=== PATIENT | male | born 1960 | race Caucasian/White ===

== ENCOUNTER → 2017-02-27 | Outpatient (CLI) | payer BC ==
[2015-12-21 09:15] VITALS: BP 146/86
[~2017-02-27] MED LIST: COQ-10100 MG PO; HCTZ 25MG25 MG PO; LIPITOR20 M1 PO; QUINAPRIL HCL20 MG PO
== END ==
LOC: RAD 11:37
DX: M79.642 Pain in left hand (principal); M25.512 Pain in left shoulder; M19.042 Primary osteoarthritis, left hand

== ENCOUNTER → 2018-03-08 | Outpatient (REF) | payer BC ==
[2015-12-21 09:15] VITALS: BP 146/86
== END ==
LOC: LAB 11:14 → EDSTATUS 11:17
DX: Z00.00 Encounter for general adult medical examination without abnormal findings (principal); Z12.5 Encounter for screening for malignant neoplasm of prostate; Z12.11 Encounter for screening for malignant neoplasm of colon

== ENCOUNTER → 2021-01-31 | Outpatient (CLI) | payer BC ==
[2015-12-21 09:15] VITALS: BP 146/86
[2021-01-31 09:59] LABS: BASO # 0.1 (0.02-0.10); EOS # 0.1 (0.04-0.40); EOS % 2.4 % (0.0-4.0); HEMOGLOBIN 13.7 g/dL (13.5-18.0); LYMPH# 1.9 (1.50-4.00); MEAN CELL VOLUME 89 fl (78-100); MEAN CORPUSCULAR HEMOGLOBIN 30 pg (27-31); MEAN CORPUSCULAR HGB CONC 33 g/dL (33-37); MEAN PLATELET VOLUME 9.9 fl (7.4-10.4); MONO # 0.7 (0.20-0.80); PLATELET COUNT 246 K/mm3 (130-400); RED BLOOD COUNT 4.61 M/mm3 (4.20-5.60); RED CELL DISTRIBUTION WIDTH 12.9 % (11.5-14.5); WHITE BLOOD COUNT 5.7 K/mm3 (4.8-10.8)
[2021-01-31 10:06] LABS: ALBUMIN 4.2 g/dL (3.5-5.0); POTASSIUM 3.8 mmol/L (3.5-5.1)
[2021-01-31 10:07] LABS: CALCIUM 8.7 mg/dL (8.3-10.5)
[2021-01-31 10:08] LABS: TOTAL PROTEIN 6.9 g/dL (6.4-8.3)
[2021-01-31 10:10] LABS: TOTAL BILIRUBIN 0.9 mg/dL (0.2-1.2)
[2021-01-31 11:02] LABS: ERYTHROCYTE SEDIMENTATION RATE 5 mm/hr (0-20)
== END ==
LOC: LAB 09:31
PROVIDERS: Internal Medicine
DX: Z00.00 Encounter for general adult medical examination without abnormal findings (principal); Z12.5 Encounter for screening for malignant neoplasm of prostate; Z12.11 Encounter for screening for malignant neoplasm of colon

== ENCOUNTER → 2022-02-07 | Outpatient (CLI) | payer BC ==
[2022-02-07 11:59] LABS: BASO # 0.09 K/mm3 (0.02-0.10); EOS # 0.14 K/mm3 (0.04-0.40); EOS % 2.2 % (0.0-4.0); HEMATOCRIT 40.1 % (42.0-52.0); HEMOGLOBIN 13.5 g/dL (13.5-18.0); LYMPH# 2.34 K/mm3 (1.50-4.00); MEAN CELL VOLUME 89 fl (78-100); MEAN CORPUSCULAR HEMOGLOBIN 30 pg (27-31); MEAN CORPUSCULAR HGB CONC 34 g/dL (33-37); MEAN PLATELET VOLUME 9.7 fl (7.4-10.4); MONO # 0.58 K/mm3 (0.20-0.80); NEU # 3.27 K/mm3 (1.40-6.50); PLATELET COUNT 253 K/mm3 (130-400); RED BLOOD COUNT 4.49 M/mm3 (4.20-5.60); RED CELL DISTRIBUTION WIDTH 13.3 % (11.5-14.5); WHITE BLOOD COUNT 6.4 K/mm3 (4.8-10.8)
[2022-02-07 12:03] LABS: ALBUMIN 4.2 g/dL (3.4-4.8)
[2022-02-07 12:04] LABS: CALCIUM 9.5 mg/dL (8.3-10.5)
[2022-02-07 12:06] LABS: TOTAL PROTEIN 7.3 g/dL (6.2-8.1)
[2022-02-07 12:07] LABS: TOTAL BILIRUBIN 0.9 mg/dL (0.2-1.2)
== END ==
LOC: LAB 11:30
PROVIDERS: Internal Medicine
DX: Z00.00 Encounter for general adult medical examination without abnormal findings (principal); Z12.5 Encounter for screening for malignant neoplasm of prostate; Z12.11 Encounter for screening for malignant neoplasm of colon; M54.51 Vertebrogenic low back pain

== ENCOUNTER → 2022-02-14 | Outpatient (CLI) | payer BC | LOC: LAB 10:32 | DX: Z00.00 Encounter for general adult medical examination without abnormal findings (principal); Z12.5 Encounter for screening for malignant neoplasm of prostate; Z12.11 Encounter for screening for malignant neoplasm of colon; M54.51 Vertebrogenic low back pain ==

== ENCOUNTER → 2023-02-23 | Outpatient (CLI) | payer BC | LOC: CARDREHAB 02-21 16:11 | DX: R07.89 Other chest pain (principal) | CPT/HCPCS: A9500 ==

== ENCOUNTER → 2023-10-05 | Outpatient (CLI) | payer BC | LOC: RAD 11:09 | DX: R91.1 Solitary pulmonary nodule (principal) | CPT/HCPCS: Q9967 ==

== ENCOUNTER → 2024-06-19 | Outpatient (CLI) | payer BC ==
[2024-06-19 11:05] LABS: BASO # 0.04 K/mm3 (0.02-0.10); EOS # 0.24 K/mm3 (0.04-0.40); EOS % 3.7 % (0.0-4.0); HEMATOCRIT 42.8 % (42.0-52.0); HEMOGLOBIN 14.3 g/dL (13.5-18.0); LYMPH# 2.01 K/mm3 (1.50-4.00); MEAN CELL VOLUME 89 fl (78-100); MEAN CORPUSCULAR HEMOGLOBIN 30 pg (27-31); MEAN CORPUSCULAR HGB CONC 33 g/dL (33-37); MEAN PLATELET VOLUME 9.5 fl (7.4-10.4); MONO # 0.52 K/mm3 (0.20-0.80); NEU # 3.63 K/mm3 (1.40-6.50); PLATELET COUNT 247 K/mm3 (130-400); RED BLOOD COUNT 4.81 M/mm3 (4.20-5.60); RED CELL DISTRIBUTION WIDTH 12.5 % (11.5-14.5); WHITE BLOOD COUNT 6.5 K/mm3 (4.8-10.8)
[2024-06-19 11:09] LABS: ALBUMIN 4.2 g/dL (3.4-4.8)
[2024-06-19 11:10] LABS: CALCIUM 9.6 mg/dL (8.3-10.5)
[2024-06-19 11:11] LABS: TOTAL PROTEIN 7.2 g/dL (6.2-8.1)
[2024-06-19 11:13] LABS: TOTAL BILIRUBIN 0.7 mg/dL (0.2-1.2)
== END ==
LOC: LAB 10:49
PROVIDERS: Internal Medicine
DX: Z00.00 Encounter for general adult medical examination without abnormal findings (principal); Z12.5 Encounter for screening for malignant neoplasm of prostate; Z12.11 Encounter for screening for malignant neoplasm of colon